=== PATIENT | female | born 1985 | race Caucasian/White ===

== ENCOUNTER 2018-07-01 12:55 | Observation (INO) | payer OTHER ==
[~2018-07-01] VITALS: Ht 162.6 cm; Wt 90.7 kg
[2018-07-01 14:11] LABS: BASOPHILS % (AUTO) 0.4 % (0.0-2.0); EOSINOPHILS % (AUTO) 0.8 % (1.0-6.0); HEMATOCRIT 35.5 % (36-46); HEMOGLOBIN 11.6 g/dL (12.0-16.0); LYMPHOCYTES # (AUTO) 1.3 K/uL (1.0-4.8); MEAN CORPUSCULAR HEMOGLOBIN 27.8 pg (26.0-34.0); MEAN CORPUSCULAR HGB CONC 32.6 G/dL (31.0-37.0); MEAN CORPUSCULAR VOLUME 85 fL (80-100); MONOCYTES # (AUTO) 0.3 K/uL (0.1-1.0); NEUTROPHILS % (AUTO) 74.8 % (40.0-70.0); PLATELET COUNT (AUTO)-OB 189 K/uL (150-450); RED BLOOD CELL COUNT(AUTO) 4.17 MIL/uL (4.00-5.20); RED CELL DISTRIBUTION WIDTH 14.6 % (11.5-14.5)
[2018-07-01 14:23] VITALS: BP 114/67
[2018-07-01] MEDS ORDERED: METHY500 PO (14:24)
[2018-07-01 14:27] LABS: ALANINE AMINOTRANSFERASE 10 U/L (12-78); ALBUMIN 2.3 g/dL (3.4-5.0); ALKALINE PHOSPHATASE 98 U/L (46-116); ANION GAP 11 mmol/L (8-16); ASPARTATE AMINOTRANSFERASE 14 U/L (15-37); BILIRUBIN,TOTAL 0.2 mg/dL (0.1-1.0); CALCIUM, TOTAL 8.7 mg/dL (8.8-10.5); CARBON DIOXIDE 22 mmol/L (22-29); CHLORIDE 105 mmol/L (98-107); CREATININE 0.73 mg/dL (0.60-1.30); GLOMERULAR FILTR. RATE CALC > 60 mL/min (>60); GLUCOSE,RANDOM 109 mg/dL (70-110); POTASSIUM 3.9 mmol/L (3.5-5.1); SODIUM SERUM 138 mmol/L (136-145); TOTAL PROTEIN, SERUM 6.2 g/dL (6.4-8.2); UREA NITROGEN, BLOOD 15 mg/dL (7-18); URIC ACID 5.2 mg/dL (2.6-7.2)
== END 2018-07-01 15:40 | disposition home or self-care (01) ==
LOC: 4S 12:55
PROVIDERS: ADMIT Obstetrics & Gynecology; ATTEND Obstetrics & Gynecology
DX: O13.3 Gestational [pregnancy-induced] hypertension without significant proteinuria, third trimester (principal); O99.89 Other specified diseases and conditions complicating pregnancy, childbirth and the puerperium; M79.89 Other specified soft tissue disorders; Z3A.35 35 weeks gestation of pregnancy
CPT/HCPCS: 36415; 76811; 80053; 81002; 84550; 85025; G0378

== ENCOUNTER 2018-07-14 18:34 | Inpatient (IN) | payer OTHER ==
[~2018-07-14] VITALS: Ht 162.6 cm; Wt 93.0 kg
[~2018-07-14 18:34] MED LIST: METHY500 PO
[2018-07-14] MEDS ORDERED: RINGERS SOLUTION,LACTATED 1,000 ML IV PRN (19:32)
[2018-07-14] MEDS ORDERED: OXYTOCIN 30 UNITS/LACT RINGERS 500 ML IV ONE (19:32)
[2018-07-14] MEDS ORDERED: METHYLERGONOVINE MALEATE 0.2 MG/ML VIAL IM PRN (19:45)
[2018-07-14] MEDS ORDERED: FentaNYL CITRATE-PF 100 MCG/2 ML VIAL IVP PRN (19:45)
[2018-07-14] MEDS ORDERED: METOCLOPRAMIDE HCL 5 MG/ML 2 ML VIAL IVP PRN (19:45)
[2018-07-14] MEDS ORDERED: CITRIC ACID/SODIUM CITRATE 30 ML SOLUTION UDCUP PO PRN (19:45)
[2018-07-14] MEDS ORDERED: LIDOCAINE/PF 1% 30 ML VIAL INJ PRN (19:45)
[2018-07-14] MEDS ORDERED: OXYGEN THERAPY IH SCH (20:00)
[2018-07-14 20:21] LABS: BASOPHILS % (AUTO) 0.4 % (0.0-2.0); EOSINOPHILS % (AUTO) 0.8 % (1.0-6.0); HEMATOCRIT 38.6 % (36-46); HEMOGLOBIN 12.8 g/dL (12.0-16.0); MEAN CORPUSCULAR HEMOGLOBIN 27.9 pg (26.0-34.0); MEAN CORPUSCULAR HGB CONC 33.2 G/dL (31.0-37.0); MEAN CORPUSCULAR VOLUME 84 fL (80-100); MONOCYTES # (AUTO) 0.4 K/uL (0.1-1.0); MONOCYTES % (AUTO) 5.6 % (2.0-9.0); NEUTROPHILS # (AUTO) 5.4 K/uL (1.8-7.7); NEUTROPHILS % (AUTO) 68.2 % (40.0-70.0); PLATELET COUNT (AUTO) 191 K/uL (150-450); RED BLOOD CELL COUNT(AUTO) 4.59 MIL/uL (4.00-5.20); RED CELL DISTRIBUTION WIDTH 15.2 % (11.5-14.5)
[2018-07-14] MEDS ORDERED: DINOPROSTONE 10 MG VAGINAL SUPPOSITORY VG ONE (20:30)
[2018-07-14] MEDS ORDERED: AMPICILLIN SODIUM 2 GM/NS 100 ML IV ONE (20:30)
[2018-07-14 20:35] LABS: ALBUMIN 2.6 g/dL (3.4-5.0); BILIRUBIN,TOTAL 0.1 mg/dL (0.1-1.0); CALCIUM, TOTAL 8.7 mg/dL (8.8-10.5); CREATININE 1.05 mg/dL (0.60-1.30); POTASSIUM 4.4 mmol/L (3.5-5.1); TOTAL PROTEIN, SERUM 6.8 g/dL (6.4-8.2); URIC ACID 5.7 mg/dL (2.6-7.2)
[2018-07-14] MEDS: RINGERS SOLUTION,LACTATED 1,000 ML IV SCH (20:46)
[2018-07-14] MEDS ORDERED: PNV11TAB PO (22:52)
[2018-07-15 00:18] VITALS: BP 129/75
[2018-07-15] MEDS ORDERED: AMPICILLIN SODIUM 1 GM/NS 50 ML IV SCH (01:00)
[2018-07-15] MEDS: RINGERS SOLUTION,LACTATED 1,000 ML IV SCH ×3 (03:20→06:36)
[2018-07-15] MEDS ORDERED: ROPIVACAINE HCL/PF 0.2% 100 ML ED ONE (03:58)
[2018-07-15] MEDS ORDERED: DiphenhydrAMINE HCL 50 MG/ML VIAL IVP PRN (04:45)
[2018-07-15] MEDS ORDERED: ONDANSETRON HCL 4 MG/2 ML VIAL IVP PRN (04:45)
[2018-07-15] MEDS ORDERED: ROPIVACAINE HCL/PF 0.2% 100 ML ED PRN (04:45)
[2018-07-15] MEDS ORDERED: OXYTOCIN 30 UNITS/LACT RINGERS 500 ML IV PRN (05:22)
[2018-07-15] MEDS ORDERED: LABETALOL HCL 200 MG TABLET ONE (07:25)
[2018-07-15] MEDS ORDERED: LABETALOL HCL 5 MG/ML 20 ML VIAL IVP PRN (07:30)
[2018-07-15] MEDS ORDERED: -PHARMACY NOTE- MISC ONE (08:30)
[2018-07-15] MEDS ORDERED: MEASLES/MUMPS/RUBELLA VACCINE, LIVE 0.5 ML/VIAL SQ ONE ×2 (09:15)
[2018-07-15] MEDS ORDERED: LANOLIN 7 GM OINTMENT TP PRN ×2 (09:15→09:45)
[2018-07-15] MEDS ORDERED: OXYTOCIN 30 UNITS/LACT RINGERS 500 ML IV ONE (09:32)
[2018-07-15] MEDS ORDERED: BENZOCAINE 20%/MENTHOL 56 GM SPRAY CANISTER TP PRN (09:45)
[2018-07-15] MEDS ORDERED: GLYCERIN/WITCH HAZEL LEAF 40 PADS JAR TP PRN (09:45)
[2018-07-15] MEDS ORDERED: MAGNESIUM HYDROXIDE SUSPENSION 30 ML UDCUP PO PRN (09:45)
[2018-07-15] MEDS ORDERED: OxyCODONE HCL/ACETAMINOPHEN 5-325 MG TABLET PO PRN ×2 (09:45)
[2018-07-15] MEDS ORDERED: LIDOCAINE/PF 1% 30 ML VIAL INJ PRN (09:45)
[2018-07-15] MEDS: IBUPROFEN 800 MG TABLET PO PRN ×2 (16:23→23:03)
[2018-07-16 05:54] LABS: BASOPHILS % (AUTO) 0.2 % (0.0-2.0); HEMATOCRIT 34.7 % (36-46); HEMOGLOBIN 11.4 g/dL (12.0-16.0); LYMPHOCYTES # (AUTO) 2.1 K/uL (1.0-4.8); LYMPHOCYTES % (AUTO) 24.8 % (22.0-44.0); MEAN CORPUSCULAR HEMOGLOBIN 28.3 pg (26.0-34.0); MEAN CORPUSCULAR HGB CONC 32.8 G/dL (31.0-37.0); MEAN CORPUSCULAR VOLUME 86 fL (80-100); MONOCYTES # (AUTO) 0.4 K/uL (0.1-1.0); MONOCYTES % (AUTO) 4.4 % (2.0-9.0); NEUTROPHILS # (AUTO) 5.8 K/uL (1.8-7.7); NEUTROPHILS % (AUTO) 69.6 % (40.0-70.0); PLATELET COUNT (AUTO)-OB 132 K/uL (150-450); RED BLOOD CELL COUNT(AUTO) 4.02 MIL/uL (4.00-5.20); RED CELL DISTRIBUTION WIDTH 15.3 % (11.5-14.5)
[2018-07-16] MEDS: IBUPROFEN 800 MG TABLET PO PRN (08:06)
[2018-07-16] MEDS ORDERED: IBUP-2071 PO (08:27)
[2018-07-16] MEDS ORDERED: DSS100 PO (08:28)
[2018-07-16] MEDS ORDERED: FERR-89 PO (08:28)
== END 2018-07-16 12:10 | disposition home or self-care (01) | DRG 807 ==
LOC: OBSVTOIN 18:34 → 4S 18:34
PROVIDERS: ADMIT Obstetrics & Gynecology; ATTEND Obstetrics & Gynecology
PROC: 10E0XZZ Delivery of Products of Conception, External Approach (ICD-10-PCS; principal; 2018-07-15)
PROC: 3E0R3BZ Introduction of Anesthetic Agent into Spinal Canal, Percutaneous Approach (ICD-10-PCS; 2018-07-15)
PROC: 00HU33Z Insertion of Infusion Device into Spinal Canal, Percutaneous Approach (ICD-10-PCS; 2018-07-15)
DX: O13.4 Gestational [pregnancy-induced] hypertension without significant proteinuria, complicating childbirth (principal); Z37.0 Single live birth; O69.81X0 Labor and delivery complicated by cord around neck, without compression, not applicable or unspecified; Z3A.37 37 weeks gestation of pregnancy
CPT/HCPCS: 84550; 86850; 86900; 86901; J0290; J2590; J2795; J7120